=== PATIENT | male | born 1940 | race Caucasian/White ===

== ENCOUNTER 2020-10-17 15:13 | Emergency (ER) | payer MEDICARE ==
[~2020-10-17] VITALS: Ht 172.7 cm; Wt 71.8 kg
[2020-10-17 15:38] VITALS: BP 142/82
== END 2020-10-17 15:45 | disposition home or self-care (01) ==
LOC: ER 15:13
DX: R50.9 Fever, unspecified (principal); R42 Dizziness and giddiness; M79.10 Myalgia, unspecified site; Z20.828 Contact with and (suspected) exposure to other viral communicable diseases
CPT/HCPCS: 36415; 87635; 99283

== ENCOUNTER 2022-03-26 05:59 | Day surgery (SDC) | payer MEDICARE ==
[2022-03-21 11:02] LABS: BASOPHILS % (AUTO) 0.5 % (0-1); EOSINOPHILS # (AUTO) 0.2 X10'3 (0-0.9); EOSINOPHILS % (AUTO) 2.3 % (0-6); HEMATOCRIT 46.9 % (42.0-52.0); HEMOGLOBIN 15.7 g/dl (14.0-17.9); LYMPHOCYTES # (AUTO) 1.8 X10'3 (1.1-4.8); LYMPHOCYTES % (AUTO) 26.7 % (21-51); MEAN CORPUSCULAR HEMOGLOBIN 30.5 PG (27.0-31.0); MEAN CORPUSCULAR HGB CONC 33.5 g/dL (33.0-36.5); MEAN CORPUSCULAR VOLUME 91.1 FL (78-98); MEAN PLATELET VOLUME 7.4 FL (7.4-10.4); MONOCYTES # (AUTO) 0.5 X10'3 (0-0.9); MONOCYTES % (AUTO) 7.8 % (2-12); NEUTROPHILS # (AUTO) 4.2 X10'3 (1.8-7.7); NEUTROPHILS % (AUTO) 62.7 % (42-75); PLATELET COUNT 283 X10'3 (140-440); RED BLOOD COUNT 5.15 X10'6 (4.70-6.10); RED CELL DISTRIBUTION WIDTH 13.6 % (11.5-14.5); WHITE BLOOD COUNT 6.8 X10'3 (4.5-11.0)
[2022-03-21 11:16] LABS: APTT 28 SECONDS (22-32)
[2022-03-21 11:29] LABS: ALANINE AMINOTRANSFERASE 26 U/L (12-78); ALBUMIN 3.8 G/DL (3.4-5.0); ALBUMIN/GLOBULIN RATIO 1.1 (1.1-1.5); ALKALINE PHOSPHATASE 76 IU/L (46-116); ANION GAP 11 (8-16); ASPARTATE AMINO TRANSFERASE 16 U/L (10-37); BILIRUBIN,TOTAL 0.5 MG/DL (0.1-1.0); BLOOD UREA NITROGEN 14 MG/DL (7-18); BUN/CREATININE RATIO 15.1 (5.4-32.0); CALCIUM 9.1 MG/DL (8.5-10.1); CHLORIDE 102 MMOL/L (99-107); CREATININE 0.93 MG/DL (0.60-1.10); GLUCOSE 106 MG/DL (70-104); SODIUM 140 MMOL/L (135-145); TOTAL CARBON DIOXIDE 27.4 MMOL/L (24-32); TOTAL PROTEIN 7.4 G/DL (6.4-8.2); eGFR 78 ML/MIN
[~2022-03-26] VITALS: Ht 172.7 cm; Wt 71.8 kg
[2022-03-26] VITALS (12 sets, daily range): BP systolic 121–181; BP diastolic 77–109
[2022-03-26] MEDS ORDERED: nitroGLYCERIN 0.4mg SUBLingual tab SL PRN ×2 (06:15→10:20)
[2022-03-26] MEDS ORDERED: diphenhydrAMINE 25mg capsule PO PRN (06:20)
[2022-03-26] MEDS ORDERED: LORazepam 0.5 MG tablet PO PRN (06:20)
[2022-03-26] MEDS ORDERED: normal saline 1,000 ML IV SCH (06:20)
[2022-03-26] MEDS ORDERED: FLO0.4C PO (06:26)
[2022-03-26] MEDS ORDERED: ASPI-10 PO (06:28)
[2022-03-26] MEDS ORDERED: LIDOCAINE 1% w/preservative (10 MG/ML) inj. 10mL VIAL ONE (08:17)
[2022-03-26] MEDS ORDERED: iohexol 350 MG/ML 50ML vial IV ONE (08:17)
[2022-03-26] MEDS ORDERED: midazolam 1 mg/ML 2ml injection ONE (08:17)
[2022-03-26] MEDS ORDERED: iohexol 350MG/ML 100ml bottle IV ONE ×2 (08:17→09:09)
[2022-03-26] MEDS ORDERED: fentaNYL/PF 50MCG/1 ML 2ML syringe ONE (08:17)
[2022-03-26] MEDS ORDERED: hydrALAZINE 20mg/ml inj. IV ONE (08:55)
[2022-03-26] MEDS ORDERED: nitroGLYCERIN-Tridil 50MG/D5W 250 ML IV ONE (09:06)
[2022-03-26] MEDS ORDERED: tirofiban 5mg in NS 100mL 0 ML IV ONE (09:10)
[2022-03-26] MEDS ORDERED: ondansetron/PF 4mg/2ml inj IV PRN (10:15)
[2022-03-26] MEDS ORDERED: normal saline 1000ml 1,000 ML IV SCH (10:15)
--- NOTE | 2022-03-26 10:15 | NUR ---
MD Wolf at bedside discussing procedure result and new medications with patient. VS stable as charted. Will continue to monitor.
[2022-03-26] MEDS ORDERED: proCHLORperazine 10 MG/2 ml inj IV PRN (10:20)
[2022-03-26] MEDS ORDERED: HYDROcodone/acetaminophen 10/325mg tab PO PRN (10:20)
[2022-03-26] MEDS ORDERED: OXAZEpam 15mg capsule PO PRN (10:20)
[2022-03-26] MEDS ORDERED: HYDROcodone/acetaminophen 5mg/325mg tablet PO PRN (10:20)
[2022-03-26] MEDS ORDERED: carVEDilol 3.125mg tablet PO ONE (10:55)
--- NOTE | 2022-03-26 10:55 | NUR ---
MD at bedside. Discussing plan of care with patient and pt . Pt is laying in bed, eating breakfast being assisted by . VS stable as charted.
--- NOTE | 2022-03-26 11:35 | NUR ---
Pt refusing to take medication, coreg as ordered. Pt educated extensively on administration, side effects, risk and benefit of taking medication as prescribed. Pt's at bedside. 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 Pt verbalized understanding of risk and benefit and states," No, I don't want to take any new medications until I speak to Dr. Bloom in his office." Emphasized he wants to "come to an agreement" with Dr. Bloom prior to starting a new medication. The patient verbalized understanding Dr. Bloom did educate him at the bedside. Pt reiterates that he still does not want to take any new medications at this time and will wait for his appointment. Pt states he is retired and "can make any appointment." VS stable as charted. Will continue to monitor.
--- NOTE | 2022-03-26 13:30 | NUR ---
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 MD was informed pt wants to wait until his follow up visit before starting new medication. No new orders given. Addendum: 03/26/22 at 1624 by Marsha Ramirez RN Correction time of contact was 1230
--- NOTE | 2022-03-26 15:02 | NUR ---
Continuing to provide education to patient and patients as blood pressure is being monitored. Reinforced education provided by Dr. Bloom as to the patient taking his blood pressure at home and recording results to take into the office. Pt states he does visit the local [facility] and will "try" to do this before his visit with Dr. Bloom.
== END 2022-03-26 16:05 | disposition home or self-care (01) ==
LOC: SSTAY O 05:59
PROVIDERS: ATTEND Internal Medicine Cardiovascular Disease
DX: R94.39 Abnormal result of other cardiovascular function study (principal); R06.09 Other forms of dyspnea; I25.119 Atherosclerotic heart disease of native coronary artery with unspecified angina pectoris; I10 Essential (primary) hypertension; I48.91 Unspecified atrial fibrillation; E78.5 Hyperlipidemia, unspecified; Z87.891 Personal history of nicotine dependence; Z79.01 Long term (current) use of anticoagulants; Z79.899 Other long term (current) drug therapy
CPT/HCPCS: 36415; 71046; 80053; 83880; 85025; 85610; 85730; 93005; 93458; 99152; 99153; C1760; C1769; J0360; J1644; J2250; J3010; J3490; J7030; Q9967; A4620; A6258; J3246